=== PATIENT | male | born 1985 | race Caucasian/White ===

== ENCOUNTER 2017-12-20 09:50 | Observation (INO) | payer OTHER ==
[2017-12-20 09:54] VITALS: BMI 36.2
--- NOTE | 2017-12-20 10:48 | C.PDOC ---
History Of Present Illness 32 year old male presents to the ER complaining of increasing redness and pain to left thigh for 3 days. Patient denies trauma/injuries or any recent travel. Also denies fever, chills, vomiting, nausea or diarrhea. Patient has no other medical complaints. Time Seen by Provider: 12/20/17 10:12 Chief Complaint (Nursing): Lower Extremity Problem/Injury History Per: Patient History/Exam Limitations: no limitations Onset/Duration Of Symptoms: Days (3) Current Symptoms Are (Timing): Still Present Past Medical History Reviewed: Historical Data, Nursing Documentation, Vital Signs Vital Signs: Last Vital Signs Temp 98.8 F 12/20/17 13:19 Pulse 70 12/20/17 13:19 Resp 16 12/20/17 13:19 BP 126/72 12/20/17 13:19 Pulse Ox 99 12/20/17 15:28 - Medical History PMH: Back Problems Surgical History: No Surg Hx Family History: States: No Known Family Hx - Social History Hx Alcohol Use: Yes Hx Substance Use: No - Immunization History Hx Tetanus Toxoid Vaccination: No Hx Influenza Vaccination: No Hx Pneumococcal Vaccination: No Review Of Systems Except As Marked, All Systems Reviewed And Found Negative. Constitutional: Negative for: Fever, Chills Gastrointestinal: Negative for: Nausea, Vomiting, Diarrhea Skin: Positive for: Other (Pain and increasing redness to left thigh ) Physical Exam - Physical Exam Appears: Non-toxic, No Acute Distress Skin: Other (Cullilitis with diffused induration to the dorsal distal aspect of left thigh. Questionable fluctuance versus induration. Large cellulitis on front thigh. Palpable cord. No gross line. Skin intact. ) Head: Atraumatic, Normacephalic Eye(s): bilateral: Normal Inspection Nose: Normal Oral Mucosa: Moist Neck: Supple Chest: Symmetrical Cardiovascular: Rhythm Regular Respiratory: Other (NARD) Extremity: Normal ROM Neurological/Psych: Oriented x3, Normal Speech Gait: Steady ED Course And Treatment - Laboratory Results Result Diagrams: 12/20/17 11:05 12/20/17 11:05 O2 Sat by Pulse Oximetry: 99 (RA) Pulse Ox Interpretation: Normal - CT Scan/US CT Left lower ext Other Rad Studies (CT/US): Read By Radiologist, Radiology Report Reviewed CT/US Interpretation: Accession No. : [id number]. Patient Name / ID : JOANNE LEON / [id number]. Exam Date : 12/20/2017 14:07:38 ( Approved ). Study Comment : Sex / Age : M / 32Y. Creator : Alexi Claire MD. Dictator : Alexi Claire MD. 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 Approver2 : Report Date : 12/20/2017 15:00:08. My Comment : . CT left thigh. History: Pain and swelling. Comparison: None available. Technique : Multiple contiguous axial images were performed through the left thigh with the use of intravenous contrast. Subsequently, sagittal and coronal reformatted images were. This CT exam was performed using one or more of the following dose reduction techniques: Automated exposure control, adjustment of the mA and/or kV according to patient size, and/or use of iterative reconstruction technique. Findings: Diffuse thickening of the anterior skin and subcutaneous soft tissues of the left thigh with associated reticulation and edema within the soft tissues suggestive for an underlying cellulitis. At the site of the palpable abnormality as well as extending throughout the entire extent of the left anterior thigh are multiple large prominent vessels/ vasculature. The vessels are markedly enlarged and tortuous in comparison to the right thigh and may represent vascular malformations versus thrombosed varicosities versus additional etiology. Clinical correlation. Prominent lymphadenopathy within the left inguinal region measuring up to 3.8 x 2.3 centimeters. The visualized musculature appears preserved. 1.3 centimeter radiodense focus seen within the distal medullary cavity of the left femur of uncertain clinical etiology possibly representing a chondroid focus versus prominent bone island versus additional etiology. Additional more sclerotic foci seen more laterally within the diaphysis of the distal left femur which may represent a small bone island. Productive change at the level of the medial femoral condyle which may represent old MCL injury and/or Cass- Stieda disease. Impression: 1. Diffuse thickening of the anterior skin and subcutaneous soft tissues of the left thigh with associated reticulation and edema within the soft tissues suggestive for an underlying cellulitis. 2. At the site of the palpable abnormality as well as extending throughout the entire extent of the left anterior thigh are multiple large prominent vessels/ vasculature. The vessels are markedly enlarged and tortuous in comparison to the right thigh and may represent vascular malformations versus thrombosed varicosities versus additional etiology. Clinical correlation. 3 Prominent lymphadenopathy within the left inguinal region measuring up to 3.8 x 2.3 centimeters. 4. 1.3 centimeter radiodense focus seen within the distal medullary cavity of the left femur of uncertain clinical etiology possibly representing a chondroid focus versus prominent bone island versus additional etiology. Additional findings as above. Progress Note: CT Left Lower Ext ordered and results reviewed. Labs and blood work ordered. Patient given Toradol 30mg IVP and Morphine 2mg IVP. Progress - Re-Evaluation Re-evaluation Note: 12/20/17 12:[address] APPEARS COMFORTABLE. 12/20/17 13:[address] 12/20/17 15:27 D/W DR Aspen MONSALVE WILL ADMIT - Data Reviewed Data Reviewed: Lab, Diagnostic imaging Disposition Counseled Patient/Family Regarding: Studies Performed, Diagnosis - Disposition Disposition: HOSPITALIZED Disposition Time: 15:28 Condition: STABLE - POA Present On Arrival: None - Clinical Impression Clinical Impression: Cellulitis - Scribe Statement The provider has reviewed the documentation as recorded by the Praneeth Garces All medical record entries made by the Enrriqueibyaneli were at my direction and personally dictated by me. I have reviewed the chart and agree that the record accurately reflects my personal performance of the history, physical exam, medical decision making, and the department course for this patient. I have also personally directed, reviewed, and agree with the discharge instructions and disposition. Decision To Admit - Pt Status Changed To: Hospital Disposition Of: Observation - . Bed Request Type: Regular Admitting Physician: Jef Monsalve Patient Diagnosis: Cellulitis
[2017-12-20] MEDS ORDERED: Vancomycin 1 gm/NS 200 ml 1 GM/200 ML BAG IVPB STA (10:53)
[2017-12-20 11:12] LABS: BASO # 0.1 K/uL (0.0-0.2); BASO % 0.5 % (0.0-2.0); EOS # 0.3 K/uL (0.0-0.7); EOS % 2.7 % (0.0-4.0); HEMOGLOBIN 13.4 g/dL (12.0-18.0); LYMPH # 2.6 K/uL (1.0-4.3); LYMPH % 21.6 % (20.0-40.0); MEAN CELL VOLUME 87.4 fL (80.0-94.0); MEAN CORPUSCULAR HEMOGLOBIN 30.2 pg (27.0-31.0); MEAN CORPUSCULAR HGB CONC 34.5 g/dL (33.0-37.0); MEAN PLATELET VOLUME 9.8 fL (7.2-11.7); MONO # 0.7 K/uL (0.0-0.8); MONO % 5.6 % (0.0-10.0); NEUT # 8.3 K/uL (1.8-7.0); NEUT % 69.6 % (50.0-75.0); RBC 4.44 Mil/uL (4.40-5.90); RED CELL DISTRIBUTION WIDTH 14.1 % (11.5-14.5)
[2017-12-20 11:28] LABS: BLOOD UREA NITROGEN 16 mg/dL (9-20); CALCIUM 9.2 mg/dl (8.6-10.4); GFR AFRICAN-AMERICAN > 60; GFR NON-AFRICAN AMERICAN > 60
[2017-12-20] MEDS ORDERED: Iodixanol 320 MG/ML 100 ML BOTTLE IV ONE (13:55)
--- NOTE | 2017-12-20 15:01 | CT ---
CT left thigh History: Pain and swelling. Comparison: None available. Technique: Multiple contiguous axial images were performed through the left thigh with the use of intravenous contrast. Subsequently, sagittal and coronal reformatted images were. This CT exam was performed using one or more of the following dose reduction techniques: Automated exposure control, adjustment of the mA and/or kV according to patient size, and/or use of iterative reconstruction technique. Findings: Diffuse thickening of the anterior skin and subcutaneous soft tissues of the left thigh with associated reticulation and edema within the soft tissues suggestive for an underlying cellulitis. At the site of the palpable abnormality as well as extending throughout the entire extent of the left anterior thigh are multiple large prominent vessels/vasculature. The vessels are markedly enlarged and tortuous in comparison to the right thigh and may represent vascular malformations versus thrombosed varicosities versus additional etiology. Clinical correlation. Prominent lymphadenopathy within the left inguinal region measuring up to 3.8 x 2.3 centimeters. The visualized musculature appears preserved. 1.3 centimeter radiodense focus seen within the distal medullary cavity of the left femur of uncertain clinical etiology possibly representing a chondroid focus versus prominent bone island versus additional etiology. Additional more sclerotic foci seen more laterally within the diaphysis of the distal left femur which may represent a small bone island. Productive change at the level of the medial femoral condyle which may represent old MCL injury and/or Cass-Stieda disease. Impression: 1. Diffuse thickening of the anterior skin and subcutaneous soft tissues of the left thigh with associated reticulation and edema within the soft tissues suggestive for an underlying cellulitis. 2. At the site of the palpable abnormality as well as extending throughout the entire extent of the left anterior thigh are multiple large prominent vessels/vasculature. The vessels are markedly enlarged and tortuous in comparison to the right thigh and may represent vascular malformations versus thrombosed varicosities versus additional etiology. Clinical correlation. 3 Prominent lymphadenopathy within the left inguinal region measuring up to 3.8 x 2.3 centimeters. 4. 1.3 centimeter radiodense focus seen within the distal medullary cavity of the left femur of uncertain clinical etiology possibly representing a chondroid focus versus prominent bone island versus additional etiology. Additional findings as above.
--- NOTE | 2017-12-20 16:53 | CP.PCM.HP ---
<Dallin Good - Last Filed: 12/20/17 16:16> History of Present Illness - History of Present Illness History of Present Illness: CC: left leg pain HPI: 32 year old male w/ no PMHx presents to ED w/ 3 days history of left upper leg swelling with increasing pain. The pain started as a small nodule , just superior to the knee that has spread superiorly to his inguinal area. Patient states that the leg feels warmer and is unable to stand w/o pain. Pain is currently rated as a 6/10. Patient reports trying some antibiotics from his [place] country [place]unsure of name[place] for 2 days prior w/ no relief of symptoms. Patient reports having a similar episode 1 year prior that resolved with some antibiotics. 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 ROS: Patient denies fevers, chills, night sweats, weight loss, chest pain, shortness of breath, abdominal pain, nausea, vomiting, lower extremity swelling. Patient states he has sometimes difficulty voiding for the past several months. 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, Smokes 1-2 cigarettes/day for 14 years , drinks socially, smokes marijuana Code status: Full code Emergency Contact: Lety: [phone] Present on Admission - Present on Admission Any Indicators Present on Admission: No Review of Systems - Constitutional Constitutional: absent: Chills, Fever, Headache, Malaise, Weight Loss - EENT Eyes: absent: Blurred Vision, Diplopia, Dry Eye, Irritation Nose/Mouth/Throat: absent: Dry Mouth, Halitosis, Mouth Lesions - Cardiovascular Cardiovascular: absent: Chest Pain, Leg Edema, Palpitations, Pedal Edema - Respiratory Respiratory: absent: Cough, Dyspnea, Wheezing - Gastrointestinal Gastrointestinal: absent: Abdominal Pain, Diarrhea, Dyspepsia - Genitourinary Genitourinary: Voiding Freq/Small Amts. absent: Flank Pain, Hematuria - Musculoskeletal Musculoskeletal: Back Pain. absent: Joint Swelling, Muscle Weakness, Myalgias, Neck Pain - Integumentary Integumentary: absent: Photosensitivity, Sores, Striae - Neurological Neurological: absent: Burning Sensations, Numbness, Focal Weakness, Loss of Vision - Hematologic/Lymphatic Hematologic: absent: Easy Bleeding, Easy Bruising Past Patient History - Past Social History Smoking Status: Light Smoker < 10 Cigarettes Daily - CARDIAC Hx Cardiac Disorders: No - PSYCHIATRIC Hx Substance Use: No - SURGICAL HISTORY Hx Surgeries: No - ANESTHESIA Hx Anesthesia: No Hx Anesthesia Reactions: No Meds Allergies/Adverse Reactions: Allergies Allergy/AdvReac Type Severity Reaction Status Date / Time No Known Allergies Allergy Verified 12/20/17 09:53 Physical Exam - Constitutional Appears: Well, Non-toxic, No Acute Distress - Head Exam Head Exam: ATRAUMATIC, NORMAL INSPECTION, NORMOCEPHALIC - Eye Exam Eye Exam: EOMI, Normal appearance Pupil Exam: NORMAL ACCOMODATION, PERRL - ENT Exam ENT Exam: Mucous Membranes Moist - Respiratory Exam Respiratory Exam: Clear to Auscultation Bilateral, NORMAL BREATHING PATTERN. absent: Rhonchi, Wheezes, Respiratory Distress - Cardiovascular Exam Cardiovascular Exam: +S1, +S2. absent: Irregular Rhythm, Systolic Murmur - GI/Abdominal Exam GI & Abdominal Exam: Normal Bowel Sounds, Soft. absent: Distended, Firm, Guarding - Extremities Exam Extremities exam: Positive for: full ROM, normal inspection, pedal pulses present. Negative for: calf tenderness, pedal edema Additional comments: - LLE, warm to touch at thigh area - Discoloration 1/2 way upper thigh, likely albarran from shorts - as clear, straight line demarcation - Supper 1/3 of thigh has blanchable erythema - Palpable chord that starts near lateral area of patella that moves superiorly and runs medially into the inguinal region - Back Exam Back exam: NORMAL INSPECTION - Neurological Exam Neurological exam: Alert, CN II-XII Intact, Oriented x3 - Psychiatric Exam Psychiatric exam: Normal Affect, Normal Mood - Skin Skin Exam: Dry, Intact, Normal Color, Warm Additional comments: - LLE, warm to touch at thigh area - Discoloration 1/2 way upper thigh, likely albarran from shorts - as clear, straight line demarcation - Supper 1/3 of thigh has blanchable erythema - Palpable chord that starts near lateral area of patella that moves superiorly and runs medially into the inguinal region Results - Vital Signs Recent Vital Signs: Last Vital Signs Temp 98.8 F 07/15/18 13:19 Pulse 70 12/20/17 13:19 Resp 16 12/20/17 13:19 BP 126/72 12/20/17 13:19 Pulse Ox 99 12/20/17 15:49 - Labs Result Diagrams: 12/20/17 11:05 12/20/17 11:05 Labs: Laboratory Results - last 24 hr 12/20/17 12/20/17 11:05 11:05 WBC 12.0 H RBC 4.44 Hgb 13.4 Hct 38.9 MCV 87.4 MCH 30.2 MCHC 34.5 RDW 14.1 Plt Count 157 MPV 9.8 Neut % (Auto) 69.6 Lymph % (Auto) 21.6 [place] % (Auto) 5.6 Eos % (Auto) 2.7 Baso % (Auto) 0.5 Neut # (Auto) 8.3 H Lymph # (Auto) 2.6 [place] # (Auto) 0.7 Eos # (Auto) 0.3 Baso # (Auto) 0.1 Sodium 143 Potassium 3.6 Chloride 104 Carbon Dioxide 28 Anion Gap 14 BUN 16 Creatinine 0.8 Est GFR ( Amer) > 60 Est GFR (Non-Af Amer) > 60 Random Glucose 84 Calcium 9.2 Assessment & Plan - Assessment and Plan (Free Text) Assessment: 1) Left thigh cellulits & thrombophlebitis - 12/20 CT results: 1. Diffuse thickening of the anterior skin and subcutaneous soft tissues of the left thigh with associated reticulation and edema within the soft tissues suggestive for an underlying cellulitis. 2. At the site of the palpable abnormality as well as extending throughout the entire extent of the left anterior thigh are multiple large prominent vessels/vasculature. The vessels are markedly enlarged and tortuous in comparison to the right thigh and may represent vascular malformations versus thrombosed varicosities versus additional etiology. Clinical correlation. 3 Prominent lymphadenopathy within the left inguinal region measuring up to 3.8 x 2.3 centimeters. 4. 1.3 centimeter radiodense focus seen within the distal medullary cavity of the left femur of uncertain clinical etiology possibly representing a chondroid focus versus prominent bone island versus additional etiology. - Vancomycin 1 gm Q12H - F/u Vanc troph 11:30 PM 12/21/17 - Zosyn 3.375 gm Q6 Hr - F/u blood cultures from 12/20 - Ibuprofen 600 mg PO Q8H - Warm compress to entire left thigh - Keep left leg elevated above, level of heart - Toradol 15 mg IV Q6H Mod Pain PRN - Toradol 30 mg IV Q6H Severe Pain pRN - Protonix 40m PO Daily - Venous Duplex L left r/o DVT - Lovenox 120 mg Sc Q12H 6PM (D/Cif venous duplex negative 2) Leukocytosis - WBC slightly elevated w/o shift - continue to monitor 3) Unable to void complete - perform prostate examination once to the floors 4) Prophylaxis - Protonix as above - Lovonox - Heart healthy 2 gm low carb diet <Jef Monsalve - Last Filed: 12/20/17 20:57> Results - Vital Signs Recent Vital Signs: Last Vital Signs Temp 98.4 F 12/20/17 20:46 Pulse 47 L 12/20/17 20:46 Resp 20 12/20/17 20:46 BP 146/81 12/20/17 20:46 Pulse Ox 98 12/20/17 20:46 - Labs Result Diagrams: 12/20/17 11:05 12/20/17 11:05 Labs: Laboratory Results - last 24 hr 12/20/17 12/20/17 11:05 11:05 WBC 12.0 H RBC 4.44 Hgb 13.4 Hct 38.9 MCV 87.4 MCH 30.2 MCHC 34.5 RDW 14.1 Plt Count 157 MPV 9.8 Neut % (Auto) 69.6 Lymph % (Auto) 21.6 [place] % (Auto) 5.6 Eos % (Auto) 2.7 Baso % (Auto) 0.5 Neut # (Auto) 8.3 H Lymph # (Auto) 2.6 [place] # (Auto) 0.7 Eos # (Auto) 0.3 Baso # (Auto) 0.1 Sodium 143 Potassium 3.6 Chloride 104 Carbon Dioxide 28 Anion Gap 14 BUN 16 Creatinine 0.8 Est GFR ( Amer) > 60 Est GFR (Non-Af Amer) > 60 Random Glucose 84 Calcium 9.2 Attending/Attestation - Attestation I have personally seen and examined this patient.: Yes I have fully participated in the care of the patient.: Yes I have reviewed all pertinent clinical information: Yes Notes (Text): 12/20/17 20:56 Patient was seen and examined with resident Dr. Good. History, exam, assessment and plan were gone over with the resident. F/U with ID Dr. Lord and Vascular Surgeon Dr. Arroyo for further recommendations. Jef Monsalve D.O.
[2017-12-20] MEDS: Piperacill/Tazo 3.375gm in Dex 3.375 GM/50 ML BAG IVPB SCH (19:15)
[2017-12-20] MEDS: Saccharomyces Boulardi 250 mg Cap PO SCH (19:16)
[2017-12-20] MEDS: Enoxaparin 120 mg Syringe SC SCH (19:30)
[2017-12-20 20:48] VITALS: RESP 20
[2017-12-20] MEDS: Vancomycin 1 gm/NS 200 ml 1 GM/200 ML BAG IVPB SCH (22:01)
[2017-12-21] MEDS: Piperacill/Tazo 3.375gm in Dex 3.375 GM/50 ML BAG IVPB SCH ×4 (00:16→17:33)
--- NOTE | 2017-12-21 00:32 | CP.PCM.CON ---
History of Present Illness - History of Present Illness History of Present Illness: Vascular Surgery Note: Dr. Arroyo 32M with no significant PMHx presented to [facility] [place] ED withs complaint of left leg pain. Patient states pain began 3 days ago. He describes pain began along a small nodule that had developed in his left medial thigh above knee joint. Patient admits to taking non-prescribed antibiotics at home which did not help alleviate symptoms. Patient reports erythema and nodularity began to travel towards his groin region. Patient reports last year he had a similar episode which resolved with antibiotics. At time of examination patient denied fever/ chill, headache/dizziness, chest pain, SOB, n/v/d. PMHx/PSHx: None All: NKDA Social: Admits to smoking 1-2 cigs/day x14yrs , EtOH use socially, admits to smoking marijuana Review of Systems - Review of Systems Review of Systems: 12 pt ROS unremarkable except as stated in HPI Past Patient History - Past Social History Smoking Status: Light Smoker < 10 Cigarettes Daily - CARDIAC Hx Cardiac Disorders: No - PSYCHIATRIC Hx Substance Use: No - SURGICAL HISTORY Hx Surgeries: No - ANESTHESIA Hx Anesthesia: No Hx Anesthesia Reactions: No Meds Allergies/Adverse Reactions: Allergies Allergy/AdvReac Type Severity Reaction Status Date / Time No Known Allergies Allergy Verified 12/20/17 09:53 - Medications Medications: Current Medications Enoxaparin Sodium (Lovenox) 120 mg SC Q12H [facility] Last Admin: 12/20/17 19:30 Dose: 120 mg Vancomycin/Sodium Chloride (Vancomycin 1 Gm/Ns 200 Ml) 1 gm in 200 mls @ 166.6 mls/hr IVPB Q12H [facility] PRN Reason: Protocol Stop: 12/25/17 23:01 Last Admin: 12/20/17 22:01 Dose: 166.6 mls/hr Piperacillin Sod/Tazobactam Sod (Zosyn 3.375 Gm Iv Premix) 3.375 gm in 50 mls @ 100 mls/hr IVPB Q6H [facility] PRN Reason: Protocol Last Admin: 12/21/17 00:16 Dose: 100 mls/hr Ibuprofen (Motrin Tab) 600 mg PO TID [facility] Last Admin: 12/20/17 19:14 Dose: 600 mg Ketorolac Tromethamine (Toradol) 30 mg IVP Q6H PRN PRN Reason: Pain, severe (8-10) Ketorolac Tromethamine (Toradol) 15 mg IVP Q6H PRN PRN Reason: Pain, moderate (4-7) Pantoprazole Sodium (Protonix Ec Tab) 40 mg PO DAILY [facility] Pneumococcal Polyvalent Vaccine (Pneumovax 23 Vaccine) 0.5 ml IM .ONCE ONE Stop: 12/22/17 10:01 Saccharomyces Boulardii (Florastor) 250 mg PO BID NELI Last Admin: 12/20/17 19:16 Dose: Not Given Physical Exam - Constitutional Appears: No Acute Distress - Head Exam Head Exam: NORMOCEPHALIC - Eye Exam Eye Exam: EOMI, Normal appearance - ENT Exam ENT Exam: Mucous Membranes Moist - Respiratory Exam Respiratory Exam: NORMAL BREATHING PATTERN - Cardiovascular Exam Cardiovascular Exam: +S1, +S2 - GI/Abdominal Exam GI & Abdominal Exam: Soft - Extremities Exam Extremities exam: Positive for: pedal edema, pedal pulses present Additional comments: left thigh superficial thrombophlebitis cellulitis - Neurological Exam Neurological exam: Alert, Oriented x3 - Psychiatric Exam Psychiatric exam: Normal Mood - Skin Skin Exam: Dry, Intact, Warm Results - Vital Signs Recent Vital Signs: Last Vital Signs Temp 98.4 F 12/20/17 20:46 Pulse 41 L 12/20/17 21:15 Resp 20 12/20/17 20:46 BP 119/73 12/20/17 21:15 Pulse Ox 98 12/20/17 22:06 - Labs Result Diagrams: 12/20/17 11:05 12/20/17 11:05 Labs: Laboratory Results - last 24 hr 12/20/17 12/20/17 11:05 11:05 WBC 12.0 H RBC 4.44 Hgb 13.4 Hct 38.9 MCV 87.4 MCH 30.2 MCHC 34.5 RDW 14.1 Plt Count 157 MPV 9.8 Neut % (Auto) 69.6 Lymph % (Auto) 21.6 [place] % (Auto) 5.6 Eos % (Auto) 2.7 Baso % (Auto) 0.5 Neut # (Auto) 8.3 H Lymph # (Auto) 2.6 [place] # (Auto) 0.7 Eos # (Auto) 0.3 Baso # (Auto) 0.1 Sodium 143 Potassium 3.6 Chloride 104 Carbon Dioxide 28 Anion Gap 14 BUN 16 Creatinine 0.8 Est GFR ( Amer) > 60 Est GFR (Non-Af Amer) > 60 Random Glucose 84 Calcium 9.2 Assessment & Plan - Assessment and Plan (Free Text) Assessment: 32M with left thigh superficial thrombophlebitis and cellulitis Plan: ABx NSAIDs prn Warm compresses to affected region F/u Venous duplex Elevate affected leg DVT ppx Medical management per primary team Further recs per Dr. Dina Chua PGY3
[2017-12-21] MEDS: Enoxaparin 120 mg Syringe SC SCH (07:00)
[2017-12-21 07:14] LABS: ALB/GLOB RATIO 1.3 (1.0-2.1); ALBUMIN 3.7 g/dL (3.5-5.0); ALT/SGPT 34 U/L (21-72); AST/SGOT 31 U/L (17-59); BLOOD UREA NITROGEN 15 mg/dL (9-20); CALCIUM 8.6 mg/dl (8.6-10.4); GFR AFRICAN-AMERICAN > 60; GFR NON-AFRICAN AMERICAN > 60
[2017-12-21 07:33] LABS: BASO % 0.5 % (0.0-2.0); EOS # 0.3 K/uL (0.0-0.7); EOS % 3.8 % (0.0-4.0); LYMPH % 21.7 % (20.0-40.0); MEAN CELL VOLUME 86.7 fL (80.0-94.0); MEAN CORPUSCULAR HEMOGLOBIN 30.4 pg (27.0-31.0); MEAN CORPUSCULAR HGB CONC 35.1 g/dL (33.0-37.0); MEAN PLATELET VOLUME 9.6 fL (7.2-11.7); MONO # 0.6 K/uL (0.0-0.8); MONO % 6.8 % (0.0-10.0); NEUT # 6.2 K/uL (1.8-7.0); NEUT % 67.2 % (50.0-75.0); NRBC % 0.1 % (0.0-2.0); RBC 4.29 Mil/uL (4.40-5.90); RED CELL DISTRIBUTION WIDTH 14.1 % (11.5-14.5); WHITE BLOOD COUNT 9.2 K/uL (4.8-10.8)
[2017-12-21 08:15] LABS: BARBITURATES, UR NEGATIVE (NEGATIVE); BENZODIAZEPINES, UR NEGATIVE (NEGATIVE); OPIATES, UR NEGATIVE (NEGATIVE); PHENCYCLIDINE, UR NEGATIVE (NEGATIVE)
--- NOTE | 2017-12-21 10:01 | CP.PCM.PN ---
<Edwin Claudio - Last Filed: 12/21/17 19:09> Subjective - Date & Time of Evaluation Date of Evaluation: 12/21/17 Time of Evaluation: 10:01 - Subjective Subjective: Patient seen and examined at bedside. He states that he has had pain and swelling of the veins in his left upper thigh, that has worsened and spread up his thigh toward his groin, that started 4 days ago. States he had this once before about 6 months ago, for which he was treated with antibiotics. He denies any bite or injury to the area. He admits he has felt tired and has had sweats at night for the past 6 months or so. He admits to intermittent pain in his right testicle, none currently. He denies any urethral discharge. He denies fevers, chills, headache, lightheadedness, shortness of breath, chest pain, abdominal pain, nausea, vomiting, diarrhea, constipation, dysuria. He states he has urinated today without any difficulty. Objective - Vital Signs/Intake and Output Vital Signs (last 24 hours): Temp Pulse Resp BP Pulse Ox 98.5 F 52 L 20 132/92 H 99 12/21/17 08:00 12/21/17 08:00 12/21/17 08:00 12/21/17 08:00 12/21/17 08:00 Intake and Output: 12/21/17 12/21/17 06:59 18:59 Intake Total 100 Balance 100 - Medications Medications: Current Medications Enoxaparin Sodium (Lovenox) 120 mg SC Q12H [facility] Last Admin: 12/21/17 07:00 Dose: Not Given Vancomycin/Sodium Chloride (Vancomycin 1 Gm/Ns 200 Ml) 1 gm in 200 mls @ 166.6 mls/hr IVPB Q12H NELI PRN Reason: Protocol Stop: 12/25/17 23:01 Last Admin: 12/20/17 22:01 Dose: 166.6 mls/hr Piperacillin Sod/Tazobactam Sod (Zosyn 3.375 Gm Iv Premix) 3.375 gm in 50 mls @ 100 mls/hr IVPB Q6H NELI PRN Reason: Protocol Last Admin: 12/21/17 05:39 Dose: 100 mls/hr Ibuprofen (Motrin Tab) 600 mg PO TID [facility] Last Admin: 12/20/17 19:14 Dose: 600 mg Ketorolac Tromethamine (Toradol) 30 mg IVP Q6H PRN PRN Reason: Pain, severe (8-10) Ketorolac Tromethamine (Toradol) 15 mg IVP Q6H PRN PRN Reason: Pain, moderate (4-7) Pantoprazole Sodium (Protonix Ec Tab) 40 mg PO DAILY [facility] Pneumococcal Polyvalent Vaccine (Pneumovax 23 Vaccine) 0.5 ml IM .ONCE ONE Stop: 12/22/17 10:01 Saccharomyces Boulardii (Florastor) 250 mg PO BID [facility] Last Admin: 12/20/17 19:16 Dose: Not Given - Labs Labs: 12/21/17 06:52 12/21/17 06:52 - Constitutional Appears: Well, No Acute Distress (He is laying in bed with feet elevated. ) - Head Exam Head Exam: ATRAUMATIC, NORMOCEPHALIC - Eye Exam Eye Exam: EOMI - ENT Exam ENT Exam: Mucous Membranes Moist - Neck Exam Neck Exam: absent: Tenderness - Respiratory Exam Respiratory Exam: Clear to Ausculation Bilateral, NORMAL BREATHING PATTERN. absent: Rales, Rhonchi, Wheezes, Respiratory Distress, Stridor - Cardiovascular Exam Cardiovascular Exam: REGULAR RHYTHM, +S1, +S2 - GI/Abdominal Exam GI & Abdominal Exam: Soft, Normal Bowel Sounds. absent: Firm, Guarding, Rigid, Tenderness - Exam Exam: absent: Scrotal Swelling, Testicular Tenderness, Uretheral Discharge External exam: absent: Ecchymosis, Erythema, Lacerations, Lesions (Left inguinal nontender lymphadenopathy), Swelling Additional comments: left inguinal lymphadenopathy, non tender - Extremities Exam Extremities Exam: Normal Capillary Refill, Tenderness (tender dilated prominent superficial vein on left anterior thigh extending up to left anterior thigh. no other edema of left anterior thigh or lower extremity noted. Right lower extremity nonerythematous, nonedematous, nontender. ). absent: Calf Tenderness , Pedal Edema Additional comments: Left lower extremity: tender dilated prominent superficial vein on left anterior thigh extending up to left anterior thigh. no other edema of left anterior thigh or lower extremity noted. Straight line demarcation on left anterior thigh noted, likely albarran. Slightly warm to touch. No lymphangitis noted. No active drainage noted. Right lower extremity nonerythematous, nonedematous, nontender. - Back Exam Back Exam: paraspinal tenderness (on left lower lumbar). absent: CVA tenderness (L), CVA tenderness (R), rash noted - Neurological Exam Neurological Exam: Alert, Awake, Oriented x3 - Skin Skin Exam: Dry, Intact, Warm Assessment and Plan - Assessment and Plan (Free Text) Plan: Assessment/plan Left thigh cellulitis, thrombophlebitis. Toradol 30mg IV PRN pain Ibuprofen 600mg PO TID IV antibiotics: Zosyn 3.375g IV Q 6 started 12/20/17 Vancomycin 1g IV Q12 started 12/20/[address] Lord consulted, help appreciated 12/21/17: As per ID Dr. Lord's note, recommended IV antibiotics for Staph and Strep coverage. 12/21/17: Case discussed with Dr. Lord, who recommended awaiting final results blood cultures prior to discharge. If negative, Dr. Lord stated that could be treated with Clindamycin 300mg QID for 7 days. 12/20/[address] 1. Diffuse thickening of the anterior skin and subcutaneous soft tissues of the left thigh with associated reticulation and edema within the soft tissues suggestive for an underlying cellulitis. 2. At the site of the palpable abnormality as well as extending throughout the entire extent of the left anterior thigh are multiple large prominent vessels/ vasculature. The vessels are markedly enlarged and tortuous in comparison to the right thigh and may represent vascular malformations versus thrombosed varicosities versus additional etiology. Clinical correlation. 3 Prominent lymphadenopathy within the left inguinal region measuring up to 3.8 x 2.3 centimeters. 4. 1.3 centimeter radiodense focus seen within the distal medullary cavity of the left femur of uncertain clinical etiology possibly representing a chondroid focus versus prominent bone island versus additional etiology. 12/20/17 Left lower venous doppler: superficial phlebitis in the left lower extremity, involving multiple varicose veins in the outer lateral low thigh and knees areas. No evidence of deep veins thrombosis of the left lower extremity. normal venous flow noted in the right common femoral vein. Vascular Surgery Dr. Arroyo consulted, help appreciated. 12/21/17 As per Vascular surgery note, recommended compressive stockings, NSAIDs , warm compresses, elevation of extremity and discharge home. Follow up Vanco trough Follow up on results of HIV, hepatitis studies Pending final results of blood cultures History of intermittent right testicular pain 12/21/17 Testicular US : symmetric testicular doppler flow without evidence for torsion. Borderline enlarged, dilated right gonadal veins raise the possibility of varicocele. Elevate scrotum History of night sweats, fatigue, rule out lymphoma 12/21/17 CT chest/abdomen/pelvis: no evidence of lymphadenopathy. no significant findings of chest, abdomen or pelvis. Follow up on LDH, HIV, hepatitis studies. History of leukocytosis WBC 12.0 --> 9.2 Continue to monitor History of urinary retention Patient able to void today without difficulty Continue to monitor Prophylaxis: Florastor 250mg PO BID Protonix 40mg PO daily Heart healthy 2g low carb diet Lovenox 40 SC daily Disposition: Follow up on Vanco trough, blood cultures, HIV, hepatitis, LDH. Clear with ID Dr. Lord prior to discharge. <Erika Garcia V - Last Filed: 12/21/17 22:44> Objective - Vital Signs/Intake and Output Vital Signs (last 24 hours): Temp Pulse Resp BP Pulse Ox 98.5 F 52 L 20 132/92 H 99 12/21/17 08:00 12/21/17 08:00 12/21/17 08:00 12/21/17 08:00 12/21/17 08:00 Intake and Output: 12/21/17 12/21/17 06:59 18:59 Intake Total 400 Balance 400 - Medications Medications: Current Medications Vancomycin/Sodium Chloride (Vancomycin 1 Gm/Ns 200 Ml) 1 gm in 200 mls @ 166.6 mls/hr IVPB Q12H NELI PRN Reason: Protocol Stop: 12/25/17 23:01 Last Admin: 12/21/17 10:41 Dose: 166.6 mls/hr Piperacillin Sod/Tazobactam Sod (Zosyn 3.375 Gm Iv Premix) 3.375 gm in 50 mls @ 100 mls/hr IVPB Q6H NELI PRN Reason: Protocol Last Admin: 12/21/17 12:36 Dose: 100 mls/hr Ibuprofen (Motrin Tab) 600 mg PO TID [facility] Last Admin: 12/21/17 14:03 Dose: 600 mg Ketorolac Tromethamine (Toradol) 30 mg IVP Q6H PRN PRN Reason: Pain, severe (8-10) Last Admin: 12/21/17 12:40 Dose: 30 mg Ketorolac Tromethamine (Toradol) 15 mg IVP Q6H PRN PRN Reason: Pain, moderate (4-7) Pantoprazole Sodium (Protonix Ec Tab) 40 mg PO DAILY [facility] Last Admin: 12/21/17 10:33 Dose: 40 mg Pneumococcal Polyvalent Vaccine (Pneumovax 23 Vaccine) 0.5 ml IM .ONCE ONE Stop: 12/22/17 10:01 Saccharomyces Boulardii (Florastor) 250 mg PO BID [facility] Last Admin: 12/21/17 10:34 Dose: 250 mg - Labs Labs: 12/21/17 06:52 12/21/17 06:52 Attending/Attestation - Attestation I have personally seen and examined this patient.: Yes I have fully participated in the care of the patient.: Yes I have reviewed all pertinent clinical information, including history, physical exam and plan: Yes Notes (Text): Patient seen, examined, case discussed with electromedical service engineer. She reporting nonspecific symptoms including night sweats, fatigue, and questionable weight loss. He reports his girlfriend is by 6 was and has been working a lot. Patient also reported for testicular sensitivity. He denies any lumps or bumps. He reports that he checks himself in the shower. Patient noted primarily pain over the left upper thigh where in the veins are noted mostly distended. Patient was seen and evaluated by both vascular surgery infectious disease. Vascular surgery recommends for discharge with NSAIDs elevation. Infectious disease following the recommendation for vascular is recommended to be on blood cultures to make sure that there is no bacteremia prior to discharge. We have completed CT chest and pelvis with IV contrast to rule out any other sources of lymphadenopathy which is negative. Ordered for testicular ultrasound which does not show any torsion but likely possibly varicocele as well. We will wait for blood cultures for possible discharge tomorrow. Assessment/Plan 1) Left thigh cellulitis & thrombophlebitis Assessment plan * Infectious Disease (Dr. Lord) on board-->help appreciated * Vascular Surgery (Dr. Arroyo) on board-->help appreciated * 12/20 CT results: 1. Diffuse thickening of the anterior skin and subcutaneous soft tissues of the left thigh with associated reticulation and edema within the soft tissues suggestive for an underlying cellulitis. 2. At the site of the palpable abnormality as well as extending throughout the entire extent of the left anterior thigh are multiple large prominent vessels/vasculature. The vessels are markedly enlarged and tortuous in comparison to the right thigh and may represent vascular malformations versus thrombosed varicosities versus additional etiology. Clinical correlation. 3 Prominent lymphadenopathy within the left inguinal region measuring up to 3.8 x 2.3 centimeters. 4. 1.3 centimeter radiodense focus seen within the distal medullary cavity of the left femur of uncertain clinical etiology possibly representing a chondroid focus versus prominent bone island versus additional etiology. * Vancomycin 1 gm Q12H * F/u Vanc troph 11:30 PM 12/21/17 * Zosyn 3.375 gm Q6 Hr * Blood culture (12/20): awaiting results * Ibuprofen 600 mg PO Q8H * Warm compress to entire left thigh * Keep left leg elevated above, level of heart * Toradol 15 mg IV Q6H Mod Pain PRN * Toradol 30 mg IV Q6H Severe Pain pRN * Protonix 40m PO Daily * Ruled out for DVT-->d/c therapuetic lovenox. 2) Leukocytosis Assessment plan * WBC slightly elevated w/o shift on admission * Normalized today * Vancomycin 1 gm Q12H * F/u Vanc troph 11:30 PM 12/21/17 * Zosyn 3.375 gm Q6 Hr * pending hepatitis, hiv 3) Unable to void complete--.Resolved Assessment plan * resolved voided today 4) testicular pain Assessment plan * symmetrical testicular Doppler flow without evidence for torsion. Borderline enlarged, dilated right gonadal veins raise the possibility of varicocele 5) Fatigue, night sweats Assessment plan * No evidence of lymphadenoapthy. No significant finding in the chest, abdomen, pelvis 6) Asymptomatic Bradycardia Assessment plan * noted on EKG 7) Prophylaxis * Protonix 40mg PO daily * Lovonox 40mg subqdail * Florastor 250mg PO BID * Heart healthy 2 gm low carb diet
[2017-12-21] MEDS: Pantoprazole 40 mg EC Tab PO SCH (10:33)
[2017-12-21] MEDS: Saccharomyces Boulardi 250 mg Cap PO SCH ×2 (10:34→17:34)
[2017-12-21] MEDS: Vancomycin 1 gm/NS 200 ml 1 GM/200 ML BAG IVPB SCH ×2 (10:41→22:07)
--- NOTE | 2017-12-21 13:02 | CP.PCM.CON ---
History of Present Illness - History of Present Illness History of Present Illness: 32 year old male presents to ED w/ 3 days history of left upper leg swelling with increasing pain. The pain started as a small nodule, just superior to the knee that has spread superiorly to his inguinal area. He reports [place] antibiotics from [place]unsure of name[place] for 2 days prior w/ no relief of symptoms. ROS: Patient denies fevers, chills, night sweats, weight loss, chest pain, shortness of breath, abdominal pain, nausea, vomiting, lower extremity swelling. Patient states he has sometimes difficulty voiding for the past several months. 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, Smokes 1-2 cigarettes/day for 14 years , drinks socially, smokes marijuana Code status: Full code Emergency Contact: , Lety Ash: [phone] Present on Admission - Present on Admission Any Indicators Present on Admission: No Review of Systems - Constitutional Constitutional: absent: Chills, Fever, Headache, Malaise, Weight Loss - EENT Eyes: absent: Blurred Vision, Diplopia, Dry Eye, Irritation Nose/Mouth/Throat: absent: Dry Mouth, Halitosis, Mouth Lesions - Cardiovascular Cardiovascular: absent: Chest Pain, Leg Edema, Palpitations, Pedal Edema - Respiratory Respiratory: absent: Cough, Dyspnea, Wheezing - Gastrointestinal Gastrointestinal: absent: Abdominal Pain, Diarrhea, Dyspepsia - Genitourinary Genitourinary: Voiding Freq/Small Amts. absent: Flank Pain, Hematuria - Musculoskeletal Musculoskeletal: Back Pain. absent: Joint Swelling, Muscle Weakness, Myalgias, Neck Pain - Integumentary Integumentary: absent: Photosensitivity, Sores, Striae - Neurological Neurological: absent: Burning Sensations, Numbness, Focal Weakness, Loss of Vision - Hematologic/Lymphatic Hematologic: absent: Easy Bleeding, Easy Bruising Past Patient History - Past Social History Smoking Status: Light Smoker < 10 Cigarettes Daily - CARDIAC Hx Cardiac Disorders: No - PSYCHIATRIC Hx Substance Use: No - SURGICAL HISTORY Hx Surgeries: No - ANESTHESIA Hx Anesthesia: No Hx Anesthesia Reactions: No Meds Allergies/Adverse Reactions: Allergies Allergy/AdvReac Type Severity Reaction Status Date / Time No Known Allergies Allergy Verified 12/20/17 09:53 - Medications Medications: Current Medications Vancomycin/Sodium Chloride (Vancomycin 1 Gm/Ns 200 Ml) 1 gm in 200 mls @ 166.6 mls/hr IVPB Q12H NELI PRN Reason: Protocol Stop: 12/25/17 23:01 Last Admin: 12/21/17 10:41 Dose: 166.6 mls/hr Piperacillin Sod/Tazobactam Sod (Zosyn 3.375 Gm Iv Premix) 3.375 gm in 50 mls @ 100 mls/hr IVPB Q6H NELI PRN Reason: Protocol Last Admin: 12/21/17 12:36 Dose: 100 mls/hr Ibuprofen (Motrin Tab) 600 mg PO TID [facility] Last Admin: 12/21/17 10:34 Dose: 600 mg Ketorolac Tromethamine (Toradol) 30 mg IVP Q6H PRN PRN Reason: Pain, severe (8-10) Last Admin: 12/21/17 12:40 Dose: 30 mg Ketorolac Tromethamine (Toradol) 15 mg IVP Q6H PRN PRN Reason: Pain, moderate (4-7) Pantoprazole Sodium (Protonix Ec Tab) 40 mg PO DAILY [facility] Last Admin: 12/21/17 10:33 Dose: 40 mg Pneumococcal Polyvalent Vaccine (Pneumovax 23 Vaccine) 0.5 ml IM .ONCE ONE Stop: 12/22/17 10:01 Saccharomyces Boulardii (Florastor) 250 mg PO BID [facility] Last Admin: 12/21/17 10:34 Dose: 250 mg Physical Exam - Constitutional Appears: Chronically Ill - Head Exam Head Exam: ATRAUMATIC - Eye Exam Eye Exam: Scleral icterus - ENT Exam ENT Exam: Mucous Membranes Dry, Normal External Ear Exam - Neck Exam Neck exam: Negative for: Lymphadenopathy - Respiratory Exam Respiratory Exam: Decreased Breath Sounds - Cardiovascular Exam Cardiovascular Exam: REGULAR RHYTHM - GI/Abdominal Exam GI & Abdominal Exam: Diminished Bowel Sounds - Rectal Exam Rectal Exam: Deferred - Extremities Exam Extremities exam: Positive for: tenderness, pedal pulses present. Negative for : calf tenderness, normal inspection, pedal edema Additional comments: swollen left leg over saphenous vein with induration of varicosities + tender - Back Exam Back exam: absent: CVA tenderness (L), CVA tenderness (R), paraspinal tenderness - Neurological Exam Neurological exam: Alert, CN II-XII Intact, Oriented x3, Reflexes Normal - Psychiatric Exam Psychiatric exam: Normal Mood - Skin Skin Exam: Erythema Results - Vital Signs Recent Vital Signs: Last Vital Signs Temp 98.5 F 12/21/17 08:00 Pulse 52 L 12/21/17 08:00 Resp 20 12/21/17 08:00 BP 132/92 H 12/21/17 08:00 Pulse Ox 99 12/21/17 08:00 - Labs Result Diagrams: 12/21/17 06:52 12/21/17 06:52 Labs: Laboratory Results - last 24 hr 12/21/17 12/21/17 12/21/17 06:52 06:52 07:00 WBC 9.2 RBC 4.29 L Hgb 13.0 Hct 37.2 MCV 86.7 MCH 30.4 MCHC 35.1 RDW 14.1 Plt Count 142 MPV 9.6 Neut % (Auto) 67.2 Lymph % (Auto) 21.7 Garland % (Auto) 6.8 Eos % (Auto) 3.8 Baso % (Auto) 0.5 Neut # (Auto) 6.2 Lymph # (Auto) 2.0 [place] # (Auto) 0.6 Eos # (Auto) 0.3 Baso # (Auto) 0.0 Sodium 140 Potassium 3.8 Chloride 105 Carbon Dioxide 26 Anion Gap 12 BUN 15 Creatinine 0.7 L Est GFR ( Amer) > 60 Est GFR (Non-Af Amer) > 60 Random Glucose 86 Calcium 8.6 Total Bilirubin 0.8 AST 31 ALT 34 Alkaline Phosphatase 75 Total Protein 6.7 Albumin 3.7 Globulin 3.0 Albumin/Globulin Ratio 1.3 Urine Opiates Screen Negative Urine Methadone Screen Negative Ur Barbiturates Screen Negative Ur Phencyclidine Scrn Negative Ur Amphetamines Screen Negative U Benzodiazepines Scrn Negative U Oth Cocaine Metabols Negative U Cannabinoids Screen Positive H Assessment & Plan (1) Phlebitis Status: Acute (2) Cellulitis Status: Acute - Assessment and Plan (Free Text) Assessment: superficial phlebitis/ cellulitis consider vascular eval rx iv antibiotics with coverage for strep ands staph
--- NOTE | 2017-12-21 13:09 | VASCLAB ---
Date of service: 12/21/2017 PROCEDURE: Left Lower Extremity Venous Duplex Exam. HISTORY: Superficial Thrombophlebitis., R/O DVT PRIORS: None. TECHNIQUE: Left common femoral, femoral, popliteal and posterior tibial, peroneal and great saphenous veins were evaluated. Flow was assessed with color Doppler, compressibility, assessment of phasic flow and augmentation response. Report prepared by GENIE German FINDINGS: LEFT: 1. Common Femoral Vein: 1.1. Compressibility - Fully compressible: Thrombus - None : Flow - Phasic: Augmentation -Normal: Reflux - None. 2. Femoral Vein: 2.1. Compressibility - Fully compressible: Thrombus - None: Flow - Phasic: Augmentation -Normal: Reflux - None. 3. Popliteal Vein: 3.1. Compressibility - Fully compressible: Thrombus - None: Flow - Phasic: Augmentation -Normal: Reflux - None. 4. Posterior Tibial Vein: 4.1. Compressibility - Fully compressible: Thrombus - None: Flow - Phasic: Augmentation -Normal: Reflux - None. 5. Peroneal Vein: 5.1. Compressibility - Fully compressible: Thrombus - None: Flow - Phasic: Augmentation -Normal: Reflux - None. 6. Great Saphenous Vein: 6.1. Compressibility - Fully compressible: Thrombus - None: Flow - Phasic: Augmentation - Normal: Reflux - None. OTHER FINDINGS: IMPRESSION: 1. Superficial phlebitis in the left lower extremity, involving multiple varicose veins in the outer lateral low thigh and knee areas. 2. No evidence of deep vein thrombosis of the left lower extremity. Normal venous flow noted in the right common femoral vein.
[2017-12-21] MEDS ORDERED: Iodixanol 320 MG/ML 100 ML BOTTLE IV ONE (14:53)
--- NOTE | 2017-12-21 15:44 | US ---
Date of service: 12/21/2017 HISTORY: pain, sensitivity on right side TECHNIQUE: Realtime sonography through the scrotum with color and doppler flow. COMPARISON: None Available. FINDINGS: RIGHT TESTICLE: Measures 4.4 x 2.1 x 3.1 cm. Normal echotexture and flow. RIGHT EPIDIDYMIS: Epididymal head measures 0.8 x 1.0 x 1.6 cm. Epididymal head cyst/ spermatocele measuring 0.5 x 0.4 x 0.7 cm. Normal flow. LEFT TESTICLE: Measures 3.9 x 2.1 x 2.7 cm. Normal echotexture and flow. LEFT EPIDIDYMIS: Epididymal head measures 1.0 x 1.0 x 1.1 cm. Grossly unremarkable appearance with normal flow. HYDROCELE: None. VARICOCELE: Borderline enlarged, dilated right gonadal veins. OTHER FINDINGS: None. IMPRESSION: Symmetric testicular Doppler flow without evidence for torsion. Borderline enlarged, dilated right gonadal veins raise the possibility of varicocele.
--- NOTE | 2017-12-21 16:43 | CT ---
Date of service: 12/21/2017 PROCEDURE: CT Chest, Abdomen and Pelvis with intravenous contrast HISTORY: lymphadenopathy COMPARISON: None. TECHNIQUE: IV dose administered: 100 mL Visipaque 320 Radiation dose: Total exam DLP = 1882.3 mGy-cm. This CT exam was performed using one or more of the following dose reduction techniques: Automated exposure control, adjustment of the mA and/or kV according to patient size, and/or use of iterative reconstruction technique. FINDINGS: CT CHEST WITH CONTRAST: LUNGS: Clear. No nodule, mass or consolidation. MEDIASTINUM: Unremarkable. Normal caliber aorta and pulmonary arterial trunk. No aortic dissection. Normal size heart. LYMPH NODES: Unremarkable. PLEURA: Unremarkable. No pneumothorax. No pleural fluid. BONES: Unremarkable. OTHER FINDINGS: None. CT ABDOMEN AND PELVIS: LIVER: Unremarkable. No gross lesion or ductal dilatation. GALLBLADDER AND BILE DUCTS: Unremarkable. PANCREAS: Unremarkable. No gross lesion or ductal dilatation. SPLEEN: Unremarkable. ADRENALS: Unremarkable. No mass. KIDNEYS AND URETERS: Tiny right lower pole cyst. No hydronephrosis. No solid mass. VASCULATURE: Unremarkable. No aortic aneurysm. BOWEL: Unremarkable. No obstruction. No gross mural thickening. APPENDIX: Normal appendix. PERITONEUM: Tiny fat containing umbilical hernia. Small fat containing right inguinal hernia. No free fluid. No free air. LYMPH NODES: Unremarkable. No enlarged lymph nodes. BLADDER: Unremarkable. REPRODUCTIVE: Unremarkable. BONES: No acute fracture. OTHER FINDINGS: None. IMPRESSION: No evidence of lymphadenopathy. No significant finding in the chest, abdomen or pelvis.
[2017-12-22] MEDS: Piperacill/Tazo 3.375gm in Dex 3.375 GM/50 ML BAG IVPB SCH ×4 (00:02→17:46)
[2017-12-22 00:04] VITALS: O2SAT 97
--- NOTE | 2017-12-22 06:52 | CP.PCM.PN ---
Objective - Vital Signs/Intake and Output Vital Signs (last 24 hours): Temp Pulse Resp BP Pulse Ox 98.3 F 63 20 132/75 97 12/22/17 00:00 12/22/17 00:00 12/22/17 00:00 12/22/17 00:00 12/22/17 00:05 Intake and Output: 12/21/17 12/22/17 18:59 06:59 Intake Total 400 Balance 400 - Medications Medications: Current Medications Enoxaparin Sodium (Lovenox) 40 mg SC DAILY [facility] Vancomycin/Sodium Chloride (Vancomycin 1 Gm/Ns 200 Ml) 1 gm in 200 mls @ 166.6 mls/hr IVPB Q12H NLEI PRN Reason: Protocol Stop: 12/25/17 23:01 Last Admin: 12/21/17 22:07 Dose: 166.6 mls/hr Piperacillin Sod/Tazobactam Sod (Zosyn 3.375 Gm Iv Premix) 3.375 gm in 50 mls @ 100 mls/hr IVPB Q6H NELI PRN Reason: Protocol Last Admin: 12/22/17 06:02 Dose: 100 mls/hr Ibuprofen (Motrin Tab) 600 mg PO TID [facility] Last Admin: 12/21/17 17:34 Dose: 600 mg Ketorolac Tromethamine (Toradol) 30 mg IVP Q6H PRN PRN Reason: Pain, severe (8-10) Last Admin: 12/21/17 12:40 Dose: 30 mg Ketorolac Tromethamine (Toradol) 15 mg IVP Q6H PRN PRN Reason: Pain, moderate (4-7) Pantoprazole Sodium (Protonix Ec Tab) 40 mg PO DAILY [facility] Last Admin: 12/21/17 10:33 Dose: 40 mg Pneumococcal Polyvalent Vaccine (Pneumovax 23 Vaccine) 0.5 ml IM .ONCE ONE Stop: 12/22/17 10:01 Saccharomyces Boulardii (Florastor) 250 mg PO BID [facility] Last Admin: 12/21/17 17:34 Dose: 250 mg - Labs Labs: 12/21/17 06:52 12/21/17 06:52
[2017-12-22 07:37] LABS: BASO % 0.5 % (0.0-2.0); EOS # 0.3 K/uL (0.0-0.7); EOS % 3.3 % (0.0-4.0); LYMPH # 1.7 K/uL (1.0-4.3); LYMPH % 18.8 % (20.0-40.0); MEAN CELL VOLUME 85.9 fL (80.0-94.0); MEAN CORPUSCULAR HEMOGLOBIN 30.3 pg (27.0-31.0); MEAN CORPUSCULAR HGB CONC 35.3 g/dL (33.0-37.0); MEAN PLATELET VOLUME 9.9 fL (7.2-11.7); MONO # 0.5 K/uL (0.0-0.8); NEUT # 6.3 K/uL (1.8-7.0); NEUT % 71.4 % (50.0-75.0); NRBC % 0.1 % (0.0-2.0); RBC 4.29 Mil/uL (4.40-5.90); RED CELL DISTRIBUTION WIDTH 13.9 % (11.5-14.5); WHITE BLOOD COUNT 8.8 K/uL (4.8-10.8)
[2017-12-22 08:15] LABS: SQUAMOUS EPITHIAL < 1 /hpf (0-5); URINE BILIRUBIN NEGATIVE (NEGATIVE); URINE BLOOD NEGATIVE (NEGATIVE); URINE CLARITY Clear (Clear); URINE COLOR Yellow (YELLOW); URINE GLUCOSE (UA) NORMAL (Normal); URINE LEUKOCYTE ESTERASE NEG Leu/uL (Negative); URINE PROTEIN NEGATIVE (NEGATIVE); URINE UROBILINOGEN NORMAL mg/dL (0.2-1.0)
[2017-12-22 08:53] LABS: ALB/GLOB RATIO 1.3 (1.0-2.1); ALBUMIN 3.9 g/dL (3.5-5.0); ALT/SGPT 37 U/L (21-72); AST/SGOT 21 U/L (17-59); BLOOD UREA NITROGEN 13 mg/dL (9-20); CALCIUM 8.7 mg/dl (8.6-10.4); GFR AFRICAN-AMERICAN > 60; GFR NON-AFRICAN AMERICAN > 60
[2017-12-22 09:13] LABS: HEPATITIS B SURFACE AG Negative (NEGATIVE)
[2017-12-22 09:19] LABS: HEPATITIS A IGM NEGATIVE (NEGATIVE); HEPATITIS B CORE AB NEGATIVE (NEGATIVE)
[2017-12-22 09:29] LABS: HEPATITIS C ANTIBODY NEGATIVE (NEGATIVE)
[2017-12-22] MEDS ORDERED: Pneumococcal 23-Valent Vaccine IM ONE (10:00)
[2017-12-22] MEDS ORDERED: Enoxaparin 40 mg Syringe SC SCH (10:00)
[2017-12-22] MEDS: Pantoprazole 40 mg EC Tab PO SCH (10:01)
[2017-12-22] MEDS: Saccharomyces Boulardi 250 mg Cap PO SCH ×2 (10:02→17:08)
[2017-12-22] MEDS: Vancomycin 1 gm/NS 200 ml 1 GM/200 ML BAG IVPB SCH (10:02)
--- NOTE | 2017-12-22 13:15 | CP.PCM.PN ---
Subjective - Date & Time of Evaluation Date of Evaluation: 12/22/17 Time of Evaluation: 10:00 - Subjective Subjective: still with pain and swelling iv rx in progress Objective - Vital Signs/Intake and Output Vital Signs (last 24 hours): Temp Pulse Resp BP Pulse Ox 99 F 59 L 20 110/70 97 12/22/17 08:00 12/22/17 08:00 12/22/17 08:00 12/22/17 08:00 12/22/17 08:00 - Medications Medications: Current Medications Enoxaparin Sodium (Lovenox) 40 mg SC DAILY [facility] Last Admin: 12/22/17 10:02 Dose: 40 mg Vancomycin/Sodium Chloride (Vancomycin 1 Gm/Ns 200 Ml) 1 gm in 200 mls @ 166.6 mls/hr IVPB Q12H [facility] PRN Reason: Protocol Stop: 12/25/17 23:01 Last Admin: 12/22/17 10:02 Dose: 166.6 mls/hr Piperacillin Sod/Tazobactam Sod (Zosyn 3.375 Gm Iv Premix) 3.375 gm in 50 mls @ 100 mls/hr IVPB Q6H NELI PRN Reason: Protocol Last Admin: 12/22/17 06:02 Dose: 100 mls/hr Ibuprofen (Motrin Tab) 600 mg PO TID [facility] Last Admin: 12/22/17 10:01 Dose: Not Given Ketorolac Tromethamine (Toradol) 30 mg IVP Q6H PRN PRN Reason: Pain, severe (8-10) Last Admin: 12/21/17 12:40 Dose: 30 mg Ketorolac Tromethamine (Toradol) 15 mg IVP Q6H PRN PRN Reason: Pain, moderate (4-7) Pantoprazole Sodium (Protonix Ec Tab) 40 mg PO DAILY [facility] Last Admin: 12/22/17 10:01 Dose: 40 mg Saccharomyces Boulardii (Florastor) 250 mg PO BID [facility] Last Admin: 12/22/17 10:02 Dose: 250 mg - Labs Labs: 12/22/17 07:10 12/22/17 07:10 - Constitutional Appears: Non-toxic, Chronically Ill - Head Exam Head Exam: NORMOCEPHALIC - Eye Exam Eye Exam: PERRL - ENT Exam ENT Exam: Mucous Membranes Dry - Neck Exam Neck Exam: absent: Lymphadenopathy - Respiratory Exam Respiratory Exam: Decreased Breath Sounds - Cardiovascular Exam Cardiovascular Exam: REGULAR RHYTHM - GI/Abdominal Exam GI & Abdominal Exam: Distended - Rectal Exam Rectal Exam: Deferred - Exam Exam: NORMAL INSPECTION - Extremities Exam Extremities Exam: absent: Pedal Edema - Back Exam Back Exam: absent: CVA tenderness (L), CVA tenderness (R) - Neurological Exam Neurological Exam: Alert, Awake Assessment and Plan (1) Phlebitis Status: Acute (2) Cellulitis Status: Acute
[2017-12-22 15:52] VITALS: BP 138/94; PULSE 64; TEMP 99.5
--- NOTE | 2017-12-22 20:11 | CP.PCM.DIS ---
<Dallin Good - Last Filed: 12/22/17 20:11> Provider - Provider Date of Admission: 12/20/17 15:29 Attending physician: Jef Monsalve MD Time Spent in preparation of Discharge (in minutes): 40 Diagnosis - Discharge Diagnosis (1) Phlebitis Status: Acute Comment: Patient given NSAIDs, pain improving, inflammation improving. (2) Cellulitis Status: Acute Comment: Pt discharged on clindamycin 300 mg Q8 for 7 days. Hospital Course - Lab Results Lab Results: Micro Results 12/20/17 12:04 Blood Blood Culture - Preliminary NO GROWTH AFTER 48 HOURS 12/20/17 12:04 Blood Blood Culture - Preliminary NO GROWTH AFTER 48 HOURS Most Recent Lab Values WBC 8.8 K/uL (4.8-10.8) 12/22/17 07:10 RBC 4.29 Mil/uL (4.40-5.90) L 12/22/17 07:10 Hgb 13.0 g/dL (12.0-18.0) 12/22/17 07:10 Hct 36.8 % (35.0-51.0) 12/22/17 07:10 MCV 85.9 fL (80.0-94.0) 12/22/17 07:10 MCH 30.3 pg (27.0-31.0) 12/22/17 07:10 MCHC 35.3 g/dL (33.0-37.0) 12/22/17 07:10 RDW 13.9 % (11.5-14.5) 12/22/17 07:10 Plt Count 161 K/uL (130-400) 12/22/17 07:10 MPV 9.9 fL (7.2-11.7) 12/22/17 07:10 Neut % (Auto) 71.4 % (50.0-75.0) 12/22/17 07:10 Lymph % (Auto) 18.8 % (20.0-40.0) L 12/22/17 07:10 Bowman % (Auto) 6.0 % (0.0-10.0) 12/22/17 07:10 Eos % (Auto) 3.3 % (0.0-4.0) 12/22/17 07:10 Baso % (Auto) 0.5 % (0.0-2.0) 12/22/17 07:10 Neut # (Auto) 6.3 K/uL (1.8-7.0) 12/22/17 07:10 Lymph # (Auto) 1.7 K/uL (1.0-4.3) 12/22/17 07:10 Bowman # (Auto) 0.5 K/uL (0.0-0.8) 12/22/17 07:10 Eos # (Auto) 0.3 K/uL (0.0-0.7) 12/22/17 07:10 Baso # (Auto) 0.0 K/uL (0.0-0.2) 12/22/17 07:10 Sodium 140 mmol/L (132-148) 12/22/17 07:10 Potassium 3.6 mmol/L (3.6-5.2) 12/22/17 07:10 Chloride 105 mmol/L (98-107) 12/22/17 07:10 Carbon Dioxide 26 mmol/L (22-30) 12/22/17 07:10 Anion Gap 12 (10-20) 12/22/17 07:10 BUN 13 mg/dL (9-20) 12/22/17 07:10 Creatinine 0.8 mg/dL (0.8-1.5) 12/22/17 07:10 Est GFR ( Amer) > 60 12/22/17 07:10 Est GFR (Non-Af Amer) > 60 12/22/17 07:10 Random Glucose 94 mg/dL (75-110) 12/22/17 07:10 Calcium 8.7 mg/dl (8.6-10.4) 12/22/17 07:10 Phosphorus 3.7 mg/dL (2.5-4.5) 12/22/17 07:10 Magnesium 2.0 mg/dL (1.6-2.3) 12/22/17 07:10 Total Bilirubin 0.9 mg/dL (0.2-1.3) 12/22/17 07:10 AST 21 U/L (17-59) 12/22/17 07:10 ALT 37 U/L (21-72) 12/22/17 07:10 Alkaline Phosphatase 71 U/L (38-126) 12/22/17 07:10 Lactate Dehydrogenase 372 U/L (313-618) 12/21/17 11:10 Total Protein 6.9 g/dL (6.3-8.3) 12/22/17 07:10 Albumin 3.9 g/dL (3.5-5.0) 12/22/17 07:10 Globulin 3.1 gm/dL (2.2-3.9) 12/22/17 07:10 Albumin/Globulin Ratio 1.3 (1.0-2.1) 12/22/17 07:10 Urine Color Yellow (YELLOW) 12/22/17 07:57 Urine Clarity Clear (Clear) 12/22/17 07:57 Urine pH 6.0 (5.0-8.0) 12/22/17 07:57 Ur Specific [place] 1.026 (1.003-1.030) 12/22/17 07:57 Urine Protein Negative mg/dL (NEGATIVE) 12/22/17 07:57 Urine Glucose (UA) Normal mg/dL (Normal) 12/22/17 07:57 Urine Ketones Negative mg/dL (NEGATIVE) 12/22/17 07:57 Urine Blood Negative (NEGATIVE) 12/22/17 07:57 Urine Nitrate Negative (NEGATIVE) 12/22/17 07:57 Urine Bilirubin Negative (NEGATIVE) 12/22/17 07:57 Urine Urobilinogen Normal mg/dL (0.2-1.0) 12/22/17 07:57 Ur Leukocyte Esterase Neg Janie/uL (Negative) 12/22/17 07:57 Urine WBC (Auto) < 1 /hpf (0-5) 12/22/17 07:57 Urine RBC (Auto) 2 /hpf (0-3) 12/22/17 07:57 Ur Squamous Epith Cells < 1 /hpf (0-5) 12/22/17 07:57 Vancomycin Trough 5.3 ug/mL (5.0-10.0) 12/21/17 19:48 Urine Opiates Screen Negative (NEGATIVE) 12/21/17 07:00 Urine Methadone Screen Negative (NEGATIVE) 12/21/17 07:00 Ur Barbiturates Screen Negative (NEGATIVE) 12/21/17 07:00 Ur Phencyclidine Scrn Negative (NEGATIVE) 12/21/17 07:00 Ur Amphetamines Screen Negative (NEGATIVE) 12/21/17 07:00 U Benzodiazepines Scrn Negative (NEGATIVE) 12/21/17 07:00 U Oth Cocaine Metabols Negative (NEGATIVE) 12/21/17 07:00 U Cannabinoids Screen Positive (NEGATIVE) H 12/21/17 07:00 Hepatitis A IgM Ab Negative (NEGATIVE) 12/22/17 07:10 Hep Bs Antigen Negative (NEGATIVE) 12/22/17 07:10 Hep B Core IgM Ab Negative (NEGATIVE) 12/22/17 07:10 Hepatitis C Antibody Negative (NEGATIVE) 12/22/17 07:10 HIV 1&2 Antibody Screen Negative (NEGATIVE) 12/22/17 07:10 - Hospital Course Hospital Course: HPI: 32 year old male w/ no PMHx presents to ED w/ 3 days history of left upper leg swelling with increasing pain. The pain started as a small nodule , just superior to the knee that has spread superiorly to his inguinal area. Patient states that the leg feels warmer and is unable to stand w/o pain. Pain is currently rated as a 6/10. Patient reports [place] from [place]ure of [place] for 2 days prior w/ no relief of symptoms. Patient reports having a similar episode 1 year prior that resolved with some antibiotics. 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 During course, patient had a CT of leg to rule of infection, but with clinical exam it revealed likely superficial thrombophlebitis. Patient was given ibuprofen 600 mg Q8 during inpatient and warm compress. Patient reported improvement in pain. Patient also had Testicular ultra sound suggestion varicocle of R side. CT abdomen was negative for any significant findings, secondary to B like symptoms reported by patient. Pt was discharged on antibiotics for coverage possible due to infection, though likely not. The above is only a summary of the patients stay in the hospital. For more details, please refer to the full chart. Below is the instructions that were provided to the patient on discharge from the hospital. Patient is stable for discharge per Dr. Garcia. Patient should discontinue his home medication, Naproxen 220mg. Patient is given prescriptions for the following medications and should start them: Naproxen 500 mg twice a day (please space out by 12 hours, for 14 days) Pepcid 20 mg twice a day (please space out by 12 hours, for 30 days) Clindamycin 300 mg three times a day (please space out by 8 hours, for 7 days) Bacid Acidophilus 1 tablet once a day (please do not take within 2 hours of taking clindamycin, please take for 30 days) If the bacid acidophilus is expensive, you can substitute yogurt with probiotics once a day. Please should follow up in the [facility] in one (1) to two (2) weeks. Please call to make an appointment [phone]. Please wear supportive undergarments for improvement of symptoms discussed during stay. If patient has any symptoms that arise again or worsen, please return to the nearest emergency medical facility. Symptoms include, but not limited to extreme pain in leg, swelling of calf muscles, redness increasing, difficulty breathing and or fevers. Thank you and take care. Discharge Exam - Head Exam Head Exam: ATRAUMATIC, NORMAL INSPECTION, NORMOCEPHALIC - Eye Exam Eye Exam: EOMI, Normal appearance, PERRL Pupil Exam: NORMAL ACCOMODATION - ENT Exam ENT Exam: Mucous Membranes Moist - Neck Exam Neck exam: Full Rom - Respiratory Exam Respiratory Exam: NORMAL BREATHING PATTERN, UNREMARKABLE. absent: Rales, Rhonchi, Wheezes - Cardiovascular Exam Cardiovascular Exam: +S1, +S2. absent: Tachycardia, Irregular Rhythm, Systolic Murmur - GI/Abdominal Exam GI & Abdominal Exam: Normal Bowel Sounds, Soft. absent: Rebound, Rigid, Tenderness - Extremities Exam Additional comments: No calf tenderness, no pedal edema, peripheral pulses intact - LLE, warm to touch at thigh area - Discoloration 1/2 way upper thigh, likely albarran from shorts - as clear, straight line demarcation - Supper 1/3 of thigh has blanchable erythema - Palpable chord that starts near lateral area of patella that moves superiorly and runs medially into the inguinal region - Neurological Exam Neurological exam: Alert, CN II-XII Intact, Oriented x3 - Psychiatric Exam Psychiatric exam: Normal Affect, Normal Mood - Skin Skin Exam: Dry, Intact, Normal Color, Warm Discharge Plan - Discharge Medications Prescriptions: Clindamycin [Cleocin] 300 mg PO Q8 #21 cap Famotidine [Pepcid] 20 mg PO Q12 #60 tab Lactobacillus Acidophilus [Bacid Acidophilus] 1 cap PO DAILY #30 cap Naproxen 500 mg PO BID #14 tablet - Follow Up Plan Condition: STABLE Disposition: HOME/ ROUTINE Instructions: Phlebitis (DC), Cellulitis (DC), Cellulitis (GEN) Additional Instructions: Patient is stable for discharge per Dr. Garcia. Patient should discontinue his home medication, Naproxen 220mg. Patient is given prescriptions for the following medications and should start them: Naproxen 500 mg twice a day (please space out by 12 hours, for 14 days) Pepcid 20 mg twice a day (please space out by 12 hours, for 30 days) Clindamycin 300 mg three times a day (please space out by 8 hours, for 7 days) Bacid Acidophilus 1 tablet once a day (please do not take within 2 hours of taking clindamycin, please take for 30 days) If the bacid acidophilus is expensive, you can substitute yogurt with probiotics once a day. Please should follow up in the [facility] in one (1) to two (2) weeks. Please call to make an appointment [phone]. Please wear supportive undergarments for improvement of symptoms discussed during stay. If patient has any symptoms that arise again or worsen, please return to the nearest emergency medical facility. Symptoms include, but not limited to extreme pain in leg, swelling of calf muscles, redness increasing, difficulty breathing and or fevers. Thank you and take care. <Erika Garcia V - Last Filed: 12/23/17 05:15> Provider - Provider Date of Admission: 12/20/17 15:29 Attending physician: Jef Monsalve MD Hospital Course - Lab Results Lab Results: Micro Results 12/20/17 12:04 Blood Blood Culture - Preliminary NO GROWTH AFTER 48 HOURS 12/20/17 12:04 Blood Blood Culture - Preliminary NO GROWTH AFTER 48 HOURS Most Recent Lab Values WBC 8.8 K/uL (4.8-10.8) 12/22/17 07:10 RBC 4.29 Mil/uL (4.40-5.90) L 12/22/17 07:10 Hgb 13.0 g/dL (12.0-18.0) 12/22/17 07:10 Hct 36.8 % (35.0-51.0) 12/22/17 07:10 MCV 85.9 fL (80.0-94.0) 12/22/17 07:10 MCH 30.3 pg (27.0-31.0) 12/22/17 07:10 MCHC 35.3 g/dL (33.0-37.0) 12/22/17 07:10 RDW 13.9 % (11.5-14.5) 12/22/17 07:10 Plt Count 161 K/uL (130-400) 12/22/17 07:10 MPV 9.9 fL (7.2-11.7) 12/22/17 07:10 Neut % (Auto) 71.4 % (50.0-75.0) 12/22/17 07:10 Lymph % (Auto) 18.8 % (20.0-40.0) L 12/22/17 07:10 Bowman % (Auto) 6.0 % (0.0-10.0) 12/22/17 07:10 Eos % (Auto) 3.3 % (0.0-4.0) 12/22/17 07:10 Baso % (Auto) 0.5 % (0.0-2.0) 12/22/17 07:10 Neut # (Auto) 6.3 K/uL (1.8-7.0) 12/22/17 07:10 Lymph # (Auto) 1.7 K/uL (1.0-4.3) 12/22/17 07:10 Bowman # (Auto) 0.5 K/uL (0.0-0.8) 12/22/17 07:10 Eos # (Auto) 0.3 K/uL (0.0-0.7) 12/22/17 07:10 Baso # (Auto) 0.0 K/uL (0.0-0.2) 12/22/17 07:10 Sodium 140 mmol/L (132-148) 12/22/17 07:10 Potassium 3.6 mmol/L (3.6-5.2) 12/22/17 07:10 Chloride 105 mmol/L (98-107) 12/22/17 07:10 Carbon Dioxide 26 mmol/L (22-30) 12/22/17 07:10 Anion Gap 12 (10-20) 12/22/17 07:10 BUN 13 mg/dL (9-20) 12/22/17 07:10 Creatinine 0.8 mg/dL (0.8-1.5) 12/22/17 07:10 Est GFR ( Amer) > 60 12/22/17 07:10 Est GFR (Non-Af Amer) > 60 12/22/17 07:10 Random Glucose 94 mg/dL (75-110) 12/22/17 07:10 Calcium 8.7 mg/dl (8.6-10.4) 12/22/17 07:10 Phosphorus 3.7 mg/dL (2.5-4.5) 12/22/17 07:10 Magnesium 2.0 mg/dL (1.6-2.3) 12/22/17 07:10 Total Bilirubin 0.9 mg/dL (0.2-1.3) 12/22/17 07:10 AST 21 U/L (17-59) 12/22/17 07:10 ALT 37 U/L (21-72) 12/22/17 07:10 Alkaline Phosphatase 71 U/L (38-126) 12/22/17 07:10 Lactate Dehydrogenase 372 U/L (313-618) 12/21/17 11:10 Total Protein 6.9 g/dL (6.3-8.3) 12/22/17 07:10 Albumin 3.9 g/dL (3.5-5.0) 12/22/17 07:10 Globulin 3.1 gm/dL (2.2-3.9) 12/22/17 07:10 Albumin/Globulin Ratio 1.3 (1.0-2.1) 12/22/17 07:10 Urine Color Yellow (YELLOW) 12/22/17 07:57 Urine Clarity Clear (Clear) 12/22/17 07:57 Urine pH 6.0 (5.0-8.0) 12/22/17 07:57 Ur Specific [place] 1.026 (1.003-1.030) 12/22/17 07:57 Urine Protein Negative mg/dL (NEGATIVE) 12/22/17 07:57 Urine Glucose (UA) Normal mg/dL (Normal) 12/22/17 07:57 Urine Ketones Negative mg/dL (NEGATIVE) 12/22/17 07:57 Urine Blood Negative (NEGATIVE) 12/22/17 07:57 Urine Nitrate Negative (NEGATIVE) 12/22/17 07:57 Urine Bilirubin Negative (NEGATIVE) 12/22/17 07:57 Urine Urobilinogen Normal mg/dL (0.2-1.0) 12/22/17 07:57 Ur Leukocyte Esterase Neg Janie/uL (Negative) 12/22/17 07:57 Urine WBC (Auto) < 1 /hpf (0-5) 12/22/17 07:57 Urine RBC (Auto) 2 /hpf (0-3) 12/22/17 07:57 Ur Squamous Epith Cells < 1 /hpf (0-5) 12/22/17 07:57 Vancomycin Trough 5.3 ug/mL (5.0-10.0) 12/21/17 19:48 Urine Opiates Screen Negative (NEGATIVE) 12/21/17 07:00 Urine Methadone Screen Negative (NEGATIVE) 12/21/17 07:00 Ur Barbiturates Screen Negative (NEGATIVE) 12/21/17 07:00 Ur Phencyclidine Scrn Negative (NEGATIVE) 12/21/17 07:00 Ur Amphetamines Screen Negative (NEGATIVE) 12/21/17 07:00 U Benzodiazepines Scrn Negative (NEGATIVE) 12/21/17 07:00 U Oth Cocaine Metabols Negative (NEGATIVE) 12/21/17 07:00 U Cannabinoids Screen Positive (NEGATIVE) H 12/21/17 07:00 Hepatitis A IgM Ab Negative (NEGATIVE) 12/22/17 07:10 Hep Bs Antigen Negative (NEGATIVE) 12/22/17 07:10 Hep B Core IgM Ab Negative (NEGATIVE) 12/22/17 07:10 Hepatitis C Antibody Negative (NEGATIVE) 12/22/17 07:10 HIV 1&2 Antibody Screen Negative (NEGATIVE) 12/22/17 07:10 Attending/Attestation - Attestation I have personally seen and examined this patient.: Yes I have fully participated in the care of the patient.: Yes I have reviewed all pertinent clinical information, including history, physical exam and plan: Yes Notes (Text): 12/23/17 05:15 Assessment/Plan 1) Left thigh cellulitis & thrombophlebitis Assessment plan * Infectious Disease (Dr. Lord) on board-->help appreciated * Vascular Surgery (Dr. Arroyo) on board-->help appreciated * 12/20 CT results: 1. Diffuse thickening of the anterior skin and subcutaneous soft tissues of the left thigh with associated reticulation and edema within the soft tissues suggestive for an underlying cellulitis. 2. At the site of the palpable abnormality as well as extending throughout the entire extent of the left anterior thigh are multiple large prominent vessels/vasculature. The vessels are markedly enlarged and tortuous in comparison to the right thigh and may represent vascular malformations versus thrombosed varicosities versus additional etiology. Clinical correlation. 3 Prominent lymphadenopathy within the left inguinal region measuring up to 3.8 x 2.3 centimeters. 4. 1.3 centimeter radiodense focus seen within the distal medullary cavity of the left femur of uncertain clinical etiology possibly representing a chondroid focus versus prominent bone island versus additional etiology. * Vancomycin 1 gm Q12H * F/u Vanc troph 11:30 PM 12/21/17 * Zosyn 3.375 gm Q6 Hr * Blood culture (12/20): awaiting results * Ibuprofen 600 mg PO Q8H * Warm compress to entire left thigh * Keep left leg elevated above, level of heart * Toradol 15 mg IV Q6H Mod Pain PRN * Toradol 30 mg IV Q6H Severe Pain pRN * Protonix 40m PO Daily * Ruled out for DVT-->d/c therapuetic lovenox. 2) Leukocytosis Assessment plan * WBC slightly elevated w/o shift on admission * Normalized today * Vancomycin 1 gm Q12H * F/u Vanc troph 11:30 PM 12/21/17 * Zosyn 3.375 gm Q6 Hr * pending hepatitis, hiv 3) Unable to void complete--.Resolved Assessment plan * resolved voided today 4) testicular pain Assessment plan * symmetrical testicular Doppler flow without evidence for torsion. Borderline enlarged, dilated right gonadal veins raise the possibility of varicocele 5) Fatigue, night sweats Assessment plan * No evidence of lymphadenoapthy. No significant finding in the chest, abdomen, pelvis 6) Asymptomatic Bradycardia Assessment plan * noted on EKG 7) Prophylaxis * Protonix 40mg PO daily * Lovonox 40mg subqdail * Florastor 250mg PO BID
== END 2017-12-22 18:00 | disposition home or self-care (01) ==
LOC: C.ER 09:50 → C.9E 15:29 → C.3T 19:20
PROVIDERS: ADMIT Family Medicine; ATTEND Family Medicine
DX: I80.02 Phlebitis and thrombophlebitis of superficial vessels of left lower extremity (principal); L03.116 Cellulitis of left lower limb; I83.892 Varicose veins of left lower extremity with other complications; N50.819 Testicular pain, unspecified; F17.210 Nicotine dependence, cigarettes, uncomplicated
CPT/HCPCS: 36415; 71260; 73701; 74177; 76870; 80048; 80053; 80074; 80202; 80324; 80345; 80346; 80349; 80353; 80358; 80361; 81001; 83615; 83735; 83992; 84100; 85025; 86703; 87040; 87086; 90471; 90732; 93971; 96365; 96372; 96374; 99285; G0378; J1650; J1885; J2270; J2543; J3370; Q9967